=== PATIENT | male | born 1995 | race Caucasian/White ===

== ENCOUNTER 2022-01-18 13:02 | Emergency (ER) | payer OTHER ==
[~2022-01-18] VITALS: Ht 180.3 cm; Wt 59.2 kg
[2022-01-18 13:03] VITALS: BP 129/80
[2022-01-18] MEDS ORDERED: MUPI30CR TOP (16:02)
[2022-01-18] MEDS ORDERED: AMOX875T2 PO (16:02)
== END 2022-01-18 16:13 | disposition left against medical advice (07) ==
LOC: M ED 13:02
DX: S01.20XA Unspecified open wound of nose, initial encounter (principal); Y92.009 Unspecified place in unspecified non-institutional (private) residence as the place of occurrence of the external cause; Z53.20 Procedure and treatment not carried out because of patient's decision for unspecified reasons